=== PATIENT | female | born 1995 | race Caucasian/White ===

== ENCOUNTER 2017-06-25 15:00 | Emergency (ER) | payer MEDICAID, OTHER ==
[~2017-06-25] VITALS: Ht 154.9 cm; Wt 100.5 kg
[2017-06-25 15:02] VITALS: Ht 154.9 cm; Wt 100.5 kg
[2017-06-25] MEDS ORDERED: ELIM TOP (16:29)
[2017-06-25] MEDS ORDERED: DOXY100T20 PO (16:30)
--- NOTE | 2017-06-25 16:46 | ERD ---
ER Documentation Chief Complaint Date/Time DATE: 06/25/17 TIME: 16:34 Chief Complaint rash x 2 months HPI Patient is a 21-year-old female presents emergency department for concerns of rash 2 month. Patient states the rash is itchy in nature. Rash is on the patient's bilateral upper extremities and now has spread throughout her body. Patient states that the rash is worse after taking a hot shower or when in the sun. Patient denies trying any creams, lotions, products, foods or pets. She does report shaving her arms. Patient states that her sister and mother also have a similar rash. Patient denies any fever or chills. Patient denies any lip swelling, tongue swelling, throat closure or loss consciousness. Patient denies any recent travel. ROS All systems reviewed and are negative except as per history of present illness. Medications Home Meds Active Scripts Doxycycline Hyclate* (Doxycycline Hyclate*) 100 Mg Tablet.dr, 100 MG PO BID for 14 Days, TAB Prov:DAISY GRANADOS PA-C 06/25/17 Permethrin* (Elimite*) 5% Cr, 1 APPLIC TOP ONCE, #1 TUB Prov:DAISY GRANADOS PA-C 06/25/17 Allergies Allergies: Coded Allergies: No Known Allergy (Unverified , 06/25/17) PMhx/Soc Medical and Surgical Hx: pt denies Medical Hx, pt denies Surgical Hx Hx Alcohol Use: No Hx Substance Use: No Hx Tobacco Use: No Physical Exam Vitals Vital Signs Date Time Temp Pulse Resp B/P Pulse Ox O2 Delivery O2 Flow Rate FiO2 06/25/17 15:02 98.3 91 19 125/84 100 Physical Exam GENERAL: Well-developed, well-nourished female. Appears in no acute distress. HEAD: Normocephalic, atraumatic. EYES: Pupils are equally reactive bilaterally. EOMs grossly intact. No conjunctival erythema. ENT: Moist mucous membranes. No uvula deviation. No kissing tonsils. NECK: Supple. No meningismus. Normal range of motion of the neck. LUNG: Clear to auscultation bilaterally. No rhonchi, wheezing, rales or coarse breath sounds. HEART: Regular rate and rhythm. No murmurs, rubs or gallops. BACK: No midline tenderness. EXTREMITIES: Equal pulses bilaterally. No peripheral clubbing, cyanosis or edema. No unilateral leg swelling. NEUROLOGIC: Alert and oriented. Moving all four extremities without any difficulty. Normal speech. Steady gait. SKIN: Normal color. Warm and dry. No pallor. Burrowed lesions noted on the patient's bilateral webspaces and lower arms. Erythematous papular lesions noted throughout the patient's upper arms and body. No lymphatic streaking. No warmth or swelling. Negative Nikolsky sign. Procedures/MDM MEDICAL DECISION MAKING: This is a 21-year-old female who presents to the ED with a rash throughout her body 2 months. Patient's mother and sister had a similar rash per patient. Vital signs were reviewed. Patient was afebrile. Patient is not diabetic. Patient's rash may be consistent with folliculitis. Patient also stated that the rash that her mother and sister was resolved after using permethrin cream. At this time we will treat the patient with a course of permethrin as well as doxycycline. Patient was advised to avoid shaving her arms. Patient had no lip swelling, tongue swelling, throat closure sensation. Low suspicion for anaphylaxis at this time. Given these findings, the patients presentation is most consistent with possible scabies exposure and folliculitis. I have a much lower clinical concern for necrotizing fasciitis, sepsis, gangrene, Omar- Justin syndrome, toxic epidural necrolysis, abscess, cellulitis, herpes zoster , viral exanthem, anaphylaxis, allergic reaction, fungal infection, impetigo, dermatitis. PRESCRIPTIONS: Doxycycline, permethrin cream DISCHARGE: At this time, patient is stable for discharge and outpatient management. I have advised the patient to avoid any new products, creams or possible allergens. I have advised the patient to avoid scratching the lesions. I have instructed the patient to follow-up with his/her primary care physician in 1-2 days. If symptoms persist, patient may need to see a websphere administrator for further examinations and testing. I have instructed the patient to promptly return to the ER at any time for any new or worsening symptoms including increased pain, fever, redness, swelling, warmth, difficulty breathing or vomiting. The patient and/or family expressed understanding of and agreement with this plan. All questions were answered. Home care instructions were provided. Departure Diagnosis: Primary Impression: Folliculitis Additional Impression: Scabies Condition: Stable Patient Instructions: Scabies, Folliculitis Referrals: MATTHEW BRITTON MD,MARCIA ROWLAND,PERI MOTA,DENNIS OSORIO,JUAN GARCIA,JUAN Crowell COUNT INCLUDES THE [facility] YOU HAVE RECEIVED A MEDICAL SCREENING EXAM AND THE RESULTS INDICATE THAT YOU DO NOT HAVE A CONDITION THAT REQUIRES URGENT TREATMENT IN THE EMERGENCY DEPARTMENT. FURTHER EVALUATION AND TREATMENT OF YOUR CONDITION CAN WAIT UNTIL YOU ARE SEEN IN YOUR DOCTORS OFFICE WITHIN THE NEXT 1-2 DAYS. IT IS YOUR RESPONSIBILITY TO MAKE AN APPOINTMENT FOR FOLOW-UP CARE. IF YOU HAVE A PRIMARY DOCTOR --you should call your primary doctor and schedule an appointment IF YOU DO NOT HAVE A PRIMARY DOCTOR YOU CAN CALL OUR PHYSICIAN REFERRAL HOTLINE AT IF YOU CAN NOT AFFORD TO SEE A PHYSICIAN YOU CAN CHOSE FROM THE FOLLOWING [facility] [address] [facility]. [facility] [address] [facility] [facility] [address] [facility] [address] [facility]. [facility] [address] [facility]. [facility] [address] [facility]. [facility] YOU HAVE RECEIVED A MEDICAL SCREENING EXAM AND THE RESULTS INDICATE THAT YOU DO NOT HAVE A CONDITION THAT REQUIRES URGENT TREATMENT IN THE EMERGENCY DEPARTMENT. FURTHER EVALUATION AND TREATMENT OF YOUR CONDITION CAN WAIT UNTIL YOU ARE SEEN IN YOUR DOCTORS OFFICE WITHIN THE NEXT 1-2 DAYS. IT IS YOUR RESPONSIBILITY TO MAKE AN APPOINTMENT FOR FOLOW-UP CARE. IF YOU HAVE A PRIMARY DOCTOR --you should call your primary doctor and schedule and appointment IF YOU DO NOT HAVE A PRIMARY DOCTOR YOU CAN CALL OUR PHYSICIAN REFERRAL HOTLINE AT . IF YOU CAN NOT AFFORD TO SEE A PHYSICIAN YOU CAN CHOSE FROM THE FOLLOWING [facility] INSTITUTIONS: [facility] [address] [place] [address] [facility] [address] [place] [address] [facility] + [facility] [address] [place] [address] Additional Instructions: Call your primary care doctor TOMORROW for an appointment during the next 1-2 days.See the doctor sooner or return here if your condition worsens before your appointment time. Stop shaving your arms. Follow up with your primary care physician. You may need a referral to see websphere administrator. ADISY GRANADOS PA-C Jun 25, 2017 16:44
== END 2017-06-25 16:54 | disposition home or self-care (01) ==
LOC: FTE 15:00
DX: L73.9 Follicular disorder, unspecified (principal); B86 Scabies
CPT/HCPCS: 99283